=== PATIENT | male | born 1950 | race Caucasian/White ===

== ENCOUNTER 2023-10-23 14:36 | Emergency (ER) | payer MEDICARE, SELFPAY ==
[2023-10-23 14:45] VITALS: BMI 26.9
--- NOTE | 2023-10-23 14:47 | XRR_ITS ---
PROCEDURE INFORMATION: Exam: XR Chest Exam date and time: 10/23/2023 3:14 PM Age: 73 years old Clinical indication: Pain; Chest pressure; Additional info: Chest pain TECHNIQUE: Imaging protocol: Radiologic exam of the chest. Views: 1 view. COMPARISON: No relevant prior studies available. FINDINGS: Lungs: No consolidation. Pleural spaces: No pleural effusion. No pneumothorax. Heart/Mediastinum: No cardiomegaly. Bones/joints: No acute findings. XR/XR chest 1V portable [id number] IMPRESSION: No acute findings.
[2023-10-23 14:48] VITALS: BP 169/83; PULSE 64; RESP 19; TEMP 36.7; O2SAT 95
--- NOTE | 2023-10-23 14:48 | ECG_ITS ---
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 Measurements Intervals Anthony Rate: 64 P: -73 [place]: 166 QRS: -75 QRSD: 121 T: 79 QT: 406 QTc: 421 Interpretive Statements ECTOPIC ATRIAL RHYTHM WITH OCCASIONAL VENTRICULAR PREMATURE COMPLEXES LEFT ANTERIOR FASCICULAR BLOCK [QRS AXIS <= -45, QR IN I, RS IN II] MINIMAL VOLTAGE CRITERIA FOR LVH, CONSIDER NORMAL VARIANT [MEETS CRITERIA IN ONE OF: R(aVL), S(V1), R(V5), R(V5/V6)+S(V1)] SEPTAL MYOCARDIAL INFARCTION , OF INDETERMINATE AGE [40+ ms Q WAVE IN V1/V2] No previous ECG available for comparison Electronically Signed On 10-24-2023 8:19:50 ASSOCIATE PROGRAMMER by Robb Dela Cruz M.D. [id number] duarte
[2023-10-23] MEDS: aspirin 81 mg Chew Tablet 324 MG PO (15:03)
--- NOTE | 2023-10-23 15:05 | ED_ITS ---
HPI - Chest Pain 2 General: Chief Complaint: Chest Pain Stated Complaint: chest pain,upper back pains Time Seen by Provider: 10/23/23 14:45 Source: patient Mode of arrival: ambulatory History of Present Illness: 73-year-old male presents to the emergen cy room with complaints of intermittent chest discomfort. This been going on the last couple of days increasing in intensity he has not noticed anything that aggravates or relieves. No fevers sweats or chills no nausea vomiting or diarrhea MD complaint: chest pain Onset (ago): day(s) (2) Timing of current episode: episodic Prior episodes: Yes Onset: during rest Pain location: substernal Pain radiation: none Relieving factors: nothing Exacerbating factors: nothing Associated symptoms: Deny abdominal pain, diaphoresis, dyspnea, fever(s), leg edema, nausea, palpitations, sense of impending doom, syncope or vomiting Review of Systems 2 Const: Denies: fever(s) or diaphoresis Card: Denies: palpitations or syncope Resp: Denies: dyspnea GI: Denies: abdominal pain, nausea or vomiting : Denies: dysuria, urinary frequency or urinary urgency Musc: Denies: neck pain or back pain Skin/Breast: Denies: rash PFSH ED 2 PFSH: Medical History (Updated 10/23/23 @ 17:19 by Henrry Sykes DO) HTN (hypertension) Social History (Updated 10/23/23 @ 15:10 by Henrry Sykes DO) Smoking and tobacco/nicotine status: current every day tobacco/nicotine user Physical Exam 2 Const: GENERAL APPEARANCE: cooperative and comfortable O RIENTATION/CONSCIOUSNESS: Yes awake, Yes oriented to person, Yes oriented to place and Yes oriented to time HENMT: COMMON NORMALS: normocephalic, atraumatic and hearing grossly normal bilaterally HEAD & SCALP: normocephalic and atraumatic Resp: COMMON NORMALS: normal respiratory effort, No retractions, No use of accessory muscles and clear to auscultation bilaterally AUSCULTATION: clear to auscultation bilaterally Cardio: COMMON NORMALS: regular rate, regular rhythm and No murmurs present (Cardio) RATE: regular rate RHYTHM: regular rhythm GI: COMMON NORMALS: Soft to palpation and No hepatosplenomegaly present A USCULTATION: Yes normoactive bowel sounds PALPATION: Yes Soft to palpation, No Tenderness to palpation present (GI), No Guarding due to palpation present (GI) and Yes No hepatosplenomegaly present Extremity: COMMON NORMALS: normal to inspection, capillary refill normal, no clubbing, cyanosis or edema, no calf tenderness and no pedal edema Neuro: SENSORIUM/ORIENTATION: Yes oriented to person, Yes oriented to place and Yes oriented to time Skin: COMMON NORMALS: no rashes or lesions noted GENERAL SKIN EXAM: no rashes or lesions noted Course 2 Vital Signs: Vital signs: Vital Signs Temperature 98.1 F 10/23/23 14:48 Pulse Rate 64 10/23/23 14:48 Respiratory Rate 19 H 10/23/23 14:48 Blood Pressure 169/83 10/23/23 14:48 Pulse Oximetry 95 10/23/23 14:48 MDM - Chest Pain Medical Decision Making No acute ST changes on her EKG troponins are negative. Will discharge the patient home start him on Isorbid mononitrate I will start him on aspirin daily. Will set him up for outpatient Lexiscan sestamibi stress test if has recurrent symptoms return. Incidental finding of bladder infection which we will treat with Macrobid. Medical Records I reviewed the patient's medical records. Lab Data I reviewed the patient's lab results. 10/23/23 14:50 10/23/23 14:50 Radiology Impressions Chest X-Ray 10/23/23 14:47 IMPRESSION: No acute findings. Laboratory Results WBC 10.40 10^3/uL (3.29-11.43) 10/23/23 14:50 RBC 5.19 10^6/uL (3.85-5.65) 10/23/23 14:50 Hgb 15.90 g/dL (11.27-16.99) 10/23/23 14:50 Hct 47.6 % (37-53) 10/23/23 14:50 MCV 91.7 fl (82-101) 10/23/23 14:50 MCH 30.6 pg (27-33) 10/23/23 14:50 MCHC 33.4 g/dL (30-55) 10/23/23 14:50 RDW 14.2 % (12.1-15.1) 10/23/23 14:50 Plt Count 171 10^3/cmm (157-399) 10/23/23 14:50 MPV 9.0 fL (7.4-10.4) 10/23/23 14:50 Neut % (Auto) 52.1 % 10/23/23 14:50 Lymph % (Auto) 39.5 % 10/23/23 14:50 Iron % (Auto) 5.0 % 10/23/23 14:50 Eos % (Auto) 2.4 % 10/23/23 14:50 Baso % (Auto) 0.7 % 10/23/23 14:50 Neut # (Auto) 5.42 10^3/uL (1.8-7.7) 10/23/23 14:50 Lymph # (Auto) 4.1 10^3/uL (0.8-4.8) 10/23/23 14:50 Iron # (Auto) 0.5 10^3/uL (0.2-0.9) 10/23/23 14:50 Eos # (Auto) 0.3 10^3/uL (0.0-0.8) 10/23/23 14:50 Baso # (Auto) 0.1 10^3/uL (0.0-0.1) 10/23/23 14:50 Nucleated RBC % (auto) 0 % 10/23/23 14:50 Nucleated RBCs # 0.0 /100WBC 10/23/23 14:50 Sodium 142 mmol/L (136-145) 10/23/23 14:50 Potassium 3.6 mmol/L (3.5-5.1) 10/23/23 14:50 Chloride 101 mmol/L (98-107) 10/23/23 14:50 Carbon Dioxide 30 mmol/L (22-29) H 10/23/23 14:50 Anion Gap 14.6 (5-19) 10/23/23 14:50 BUN 12 mg/dL (8-23) 10/23/23 14:50 Creatinine 0.8 mg/dL (0.7-1.2) 10/23/23 14:50 GFR Calculation Not Reportable 10/23/23 14:50 Glucose 186 mg/dL (65-115) H 10/23/23 14:50 Calculated Osmolality 299 mOsm/kg (285-295) H 10/23/23 14:50 Calcium 8.9 mg/dL (8.5-10.5) 10/23/23 14:50 Total Bilirubin 0.5 mg/dL (0.15-1.2) 10/23/23 14:50 AST 21 U/L (0-40) 10/23/23 14:50 ALT 17 U/L (0-41) 10/23/23 14:50 Alkaline Phosphatase 105 U/L (40-130) 10/23/23 14:50 Troponin T Baseline < 6 ng/L (0-15) 10/23/23 14:50 Troponin T 120 Minute 7.86 ng/L (0-15) 10/23/23 16:28 Delta Troponin T 1.02715 ABS# (0-10) 10/23/23 16:28 Total Protein 6.8 g/dL (6.6-8.7) 10/23/23 14:50 Albumin 4.4 g/dL (3.5-5.2) 10/23/23 14:50 Globulin 2.4 g/dL (1.3-4.6) 10/23/23 14:50 Urine Color Yellow (Yellow) 10/23/23 15:03 Urine Appearance Cloudy (CLEAR) A 10/23/23 15:03 Urine pH 7 (5-7) 10/23/23 15:03 Ur Specific [place] 1.015 (1.005-1.030) 10/23/23 15:03 Urine Protein Neg (Negative) 10/23/23 15:03 Urine Glucose (UA) 1+ (Normal) H 10/23/23 15:03 Urine Ketones Negative (Negative) 10/23/23 15:03 Urine Blood Neg (Negative) 10/23/23 15:03 Urine Nitrate Negative (Negative) 10/23/23 15:03 Urine Bilirubin Neg (Negative) 10/23/23 15:03 Urine Urobilinogen Norm mg/dL (Negative) 10/23/23 15:03 Ur Leukocyte Esterase Trace (Negative) H 10/23/23 15:03 Urine RBC None /hpf (0-2) 10/23/23 15:03 Urine WBC 5-10 /hpf (0-5) H 10/23/23 15:03 Ur Squamous Epith Cells None /hpf (0-5) 10/23/23 15:03 Amorphous Sediment 3+ /hpf 10/23/23 15:03 Urine Bacteria 1+ /hpf (NONE) H 10/23/23 15:03 All radiology interpretation(s) finalized by discharge Discharge Plan Discharge Patient Disposition: Home Clinical Impression: Atypical chest pain, HTN (hypertension), Cystitis Condition: Stable Prescriptions: New aspirin 81 mg tablet,delayed release (DR/EC) 81 mg PO DAILY Qty: 30 0RF isosorbide mononitrate 30 mg tablet extended release 24 hr 30 mg PO DAILY Qty: 30 0RF nitrofurantoin macrocrystal 100 mg capsule 100 mg PO BID 7 Days Qty: 14 0RF Rx Instructions: must administer with a meal/food Discharge Orders: Discharge ED (Routine); Ordered 10/23/23 Ordered By: Henrry Sykes Discharge Diet: Usual diet Discharge Activity: Limit activity as instructed Patient Instructions: Opioid Safety, Pain Management Activity Restrictions/Additional Instructions: Thank you for choosing [facility] for your healthcare needs today. Please realize this is an emergency room and that we are providing you with a medical screening exam and this may not be complete and all inclusive of all the testing and or work up that you may need to determine your ailment or severity of your illness. It is very important that you follow up as instructed or that you return to the Emergency Department should you have concerns or if your condition changes or worsens in any way. You are seen today for chest discomfort. Recommend that you start on isosorbide mononitrate once daily additionally recommend you take a baby aspirin daily. communication manager will make arrangements for you to have an outpatient Lexiscan sestamibi stress test. If you have worsening chest discomfort return to the emergency room As an incidental finding you were noted to have a bladder infection which you were prescribed an antibiotic for. Coding Level of Care Code ED Bed Maker for Lamin Soares
[2023-10-23 15:06] LABS: Basophils # 0.1 10^3/uL (0.0-0.1); Basophils % 0.7 %; Eosinophils # 0.3 10^3/uL (0.0-0.8); Eosinophils % 2.4 %; Hematocrit 47.6 % (37-53); Lymphocytes # 4.1 10^3/uL (0.8-4.8); Lymphocytes % 39.5 %; Mean Corpuscular HGB Conc 33.4 g/dL (30-55); Mean Corpuscular Hemoglobin 30.6 pg (27-33); Mean Corpuscular Volume 91.7 fl (82-101); Monocytes # 0.5 10^3/uL (0.2-0.9); Neutrophils # 5.42 10^3/uL (1.8-7.7); Neutrophils % 52.1 %; Nucleated Red Blood Cells % 0 %; Platelet Count 171 10^3/cmm (157-399); Red Blood Count 5.19 10^6/uL (3.85-5.65); Red Cell Distribution Width 14.2 % (12.1-15.1)
[2023-10-23 15:14] LABS: Add Urine Microscopic? YES; Bilirubin Urine Neg (Negative); Blood Urine Neg (Negative); Glucose Urine UA 1+ (Normal); Ketones Urine Negative (Negative); Leukocyte Esterase Urine Trace (Negative); Nitrate Urine Negative (Negative); Protein Urine Neg (Negative); Specific Gravity, Urine 1.015 (1.005-1.030); Urine Appearance Cloudy (CLEAR); Urine Color Yellow (Yellow); Urobilinogen Urine Norm (Negative); pH Urine 7 (5-7)
[2023-10-23 15:17] LABS: Add Urine Culture? No; Amorphous Sediment Urine 3+ /hpf; Bacteria Urine 1+ /hpf
[2023-10-23 15:18] VITALS: PULSE 61; RESP 18; O2SAT 95
[2023-10-23 15:24] LABS: Troponin(5th) Baseline < 6 ng/L (0-15)
[2023-10-23 15:26] LABS: Alanine Aminotransferase 17 U/L (0-41); Albumin Level 4.4 g/dL (3.5-5.2); Alkaline Phosphatase 105 U/L (40-130); Anion Gap 14.6 (5-19); Aspartate Amino Transferase 21 U/L (0-40); Blood Urea Nitrogen 12 mg/dL (8-23); Calcium 8.9 mg/dL (8.5-10.5); Carbon Dioxide 30 mmol/L (22-29); Chloride 101 mmol/L (98-107); Globulin 2.4 g/dL (1.3-4.6); Glucose 186 mg/dL (65-115); Osmolality Calculated 299 mOsm/kg (285-295); Potassium 3.6 mmol/L (3.5-5.1); Sodium 142 mmol/L (136-145); Total Bilirubin 0.5 mg/dL (0.15-1.2); Total Protein 6.8 g/dL (6.6-8.7)
[2023-10-23 15:48] VITALS: BP 133/67; PULSE 59; O2SAT 93
[2023-10-23 16:18] VITALS: PULSE 63; RESP 16; O2SAT 95
[2023-10-23 16:48] VITALS: BP 162/71; PULSE 57; RESP 18; O2SAT 94
--- NOTE | 2023-10-23 16:48 | ECG_ITS ---
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 Measurements Intervals Walsh Rate: 54 P: -64 [place]: 181 QRS: -72 QRSD: 121 T: 70 QT: 415 QTc: 396 Interpretive Statements ECTOPIC ATRIAL BRADYCARDIA LEFT ANTERIOR FASCICULAR BLOCK [QRS AXIS <= -45, QR IN I, RS IN II] POSSIBLE LEFT VENTRICULAR HYPERTROPHY [VOLTAGE CRITERIA PLUS LAE OR QRS WIDENING] No previous ECG available for comparison Electronically Signed On 10-23-2023 16:51:47 NUCLEAR PHYSICS TEACHER by Robb Dela Cruz M.D. [id number]
[2023-10-23 16:52] LABS: Troponin 5 2HR 7.86 ng/L (0-15); Troponin 5 2HR Delta 1.86001 ABS# (0-10)
[2023-10-23 17:18] VITALS: BP 143/86; PULSE 55; RESP 17; O2SAT 95
== END 2023-10-23 17:42 | disposition home or self-care (01) ==
PROVIDERS: Emergency Provider Family Medicine; PCP Nurse Practitioner Family
DX: R07.89 Other chest pain (principal); I10 Essential (primary) hypertension; N30.90 Cystitis, unspecified without hematuria; Z72.0 Tobacco use
CPT/HCPCS: 36415; 71045; 80053; 81001; 84484; 85025; 93005; 99285

== ENCOUNTER 2024-09-12 06:56 | Outpatient (CLI) | payer MEDICARE, SELFPAY ==
--- NOTE | 2024-09-12 07:06 | CT_ITS ---
WS: [id number] LDCT LUNG CANCER SCREENING HISTORY: TOBACOO DEPENDENCE TECHNIQUE: Axial imaging performed from the apices to 1 cm below the costophrenic angles. Coronal and sagittal reformats are submitted with axial MIP series. All CT scans at [facility] use at least one of these dose optimization techniques: automated exposure control; mA and/or kV adjustment per patient size (includes targeted exams where dose is matched to clinical indication); or iterativ e reconstruction. DLP: 59.52 mGy.cm DIvol: Mean CTDIvol: 1.20 (mGy) COMPARISON: None available. Diagnostic quality: Satisfactory Lungs: Mild pulmonary hyperexpansion. Numerous bilateral calcified and noncalcified pulmonary nodules . Noncalcified nodules range in size from 2 to 6 mm. Largest nodule at the RIGHT lung base abutting t he pleura measures 6 mm. There are several nodules at the RIGHT lung base. Additional areas of scarri ng and fibrosis. Chronic linear atelectasis or scar in the lingula. Heart: Normal size heart with no pericardial effusion.. Other findings: Moderate atherosclerotic plaque thoracic aorta. No aneurysm. Normal size pulmonary ar patricia. Small mediastinal and hilar lymph nodes. Small axillary lymph nodes. Normal adrenal glands. Mul tilobulated spleen. May be from prior trauma or splenules. CT/CT lung screening [id number] IMPRESSION: LUNG-RADS: 3-Probably Benign FOLLOW UP: 6 Month LDCT OTHER FINDINGS (S MODIFIER): None.
== END 2024-09-12 06:57 | disposition home or self-care (01) ==
PROVIDERS: PCP Nurse Practitioner Family; Visit Provider Nurse Practitioner Family
DX: Z12.2 Encounter for screening for malignant neoplasm of respiratory organs (principal); F17.210 Nicotine dependence, cigarettes, uncomplicated; R91.8 Other nonspecific abnormal finding of lung field; J84.10 Pulmonary fibrosis, unspecified; J98.11 Atelectasis; I70.0 Atherosclerosis of aorta; R16.0 Hepatomegaly, not elsewhere classified
CPT/HCPCS: 71271

== ENCOUNTER 2025-05-02 13:36 | Outpatient (CLI) | payer MEDICARE, SELFPAY ==
--- NOTE | 2025-05-02 13:46 | CT_ITS ---
WS: [id number] CT chest wo con [id number] HISTORY: LUNG NODULES TECHNIQUE: Axial imaging performed through the thorax. Coronal and sagittal reformats are submitted. All CT scans at [facility] use at least one of these dose optimization techniques: automated exposure control; mA and/or kV adjustment per patient size (includes targeted exams where dose is matched to clinical indication); or iterative reconstruction. CONTRAST: Omnipaque 350; 100 mL IV. DLP: 337.02 mGy.cm COMPARISON: Lung screening CT 09/12/2024 Lungs and central airway: Several bilateral pulmonary nodules ranging in size from 2 to 6 mm. The largest measuring 6 mm at the RIGHT lung base abutting the pleura. None of these nodules have increased in size. Some of these nodules are calcified. No pneumonia. Pleura: Normal. No pleural effusion. Heart and pericardium: Normal size heart with no pericardial effusion. Mediastinum and shauna: No mediastinum or hilar adenopathy. Prominent azygos vein. Probable normal variation. Similar to the prior study. Vessels: Mild atherosclerosis aorta. No aneurysm. Mildly ectatic thoracic aorta. Normal size pulmonary artery. Chest wall and lower neck: No soft tissue masses. Upper abdomen: Multiple lobulations LEFT upper quadrant probably due to lobulated spleen. May be the result of prior trauma. Osseous structures: No destructive process. CT/CT chest wo con [id number] IMPRESSION: 1. No increase in size of the small pulmonary nodules. Largest 6 mm at the RIG HT lung base. 2. No mediastinal or hilar adenopathy. 3. Atherosclerosis aorta with ectasia.
== END 2025-05-02 13:37 | disposition home or self-care (01) ==
LOC: RAD 13:37
PROVIDERS: PCP Nurse Practitioner Family; Visit Provider Nurse Practitioner Family
DX: R91.8 Other nonspecific abnormal finding of lung field (principal); I70.0 Atherosclerosis of aorta; I77.810 Thoracic aortic ectasia
CPT/HCPCS: 71250